=== PATIENT | male | born 1960 ===

== ENCOUNTER 2017-05-13 11:02 | Emergency (ER) | payer BC ==
--- NOTE | 2017-05-13 13:24 | UC ---
UC General HPI - HPI Summary HPI Summary: Has return of right great toe pain, pt here requesting refill of indocin--- discussion regarding the need for labs to assess renal function and high blood pressure--Patient reports he will be seeing a provider in [place] - History of Current Complaint Chief Complaint: UCMedRefill Stated Complaint: GOUT Time Seen by Provider: 05/13/17 13:17 Hx Obtained From: Patient Onset/Duration: Sudden Onset, Lasting Days, Still Present Timing: Constant Onset Severity: Moderate Current Severity: Moderate Pain Intensity: 8 Pain Location at: right great toe Aggravating: movement Associated Signs & Symptoms: Negative: Edema, Trauma - Allergy/Home Medications Allergies/Adverse Reactions: Allergies Allergy/AdvReac Type Severity Reaction Status Date / Time No Known Allergies Allergy Verified 05/13/17 12:45 PMH/Surg Hx/FS Hx/Imm Hx Previously Healthy: No - Gout Cardiovascular History: Hypertension - non adherent with Diovan as reccommended by PCP - Surgical History Surgical History: None - Family History Known Family History: Positive: None Family History: no reported cardiovascular issues in family lineage - Social History Occupation: Employed Full-time Lives: With Family Alcohol Use: Daily Substance Use Type: None Smoking Status (MU): Never Smoked Tobacco Review of Systems Constitutional: Negative Skin: Negative Eyes: Negative ENT: Negative Respiratory: Negative Cardiovascular: Negative Gastrointestinal: Negative Genitourinary: Negative Motor: Negative Neurovascular: Negative Musculoskeletal: Arthralgia - right great toe Neurological: Negative Psychological: Negative All Other Systems Reviewed And Are Negative: Yes Physical Exam Triage Information Reviewed: Yes Appearance: Well-Appearing, No Pain Distress, Well-Nourished Vital Signs: Initial Vital Signs Temp 98.6 F 05/13/17 12:41 Pulse 106 05/13/17 12:41 Resp 20 05/13/17 12:41 BP 179/102 05/13/17 12:41 Pulse Ox 98 05/13/17 12:41 Vital Signs Reviewed: Yes Eye Exam: Normal Eyes: Positive: Conjunctiva Clear ENT Exam: Normal ENT: Positive: Normal ENT inspection, Hearing grossly normal. Negative: Nasal congestion, Nasal drainage, Trismus, Muffled/hoarse voice Dental Exam: Normal Neck exam: Normal Neck: Positive: Supple, Nontender Respiratory Exam: Normal Respiratory: Positive: No respiratory distress, No accessory muscle use Cardiovascular Exam: Normal Cardiovascular: Positive: RRR, Pulses Normal, Brisk Capillary Refill Musculoskeletal Exam: Normal Musculoskeletal: Positive: Strength Intact, ROM Intact, No Edema Neurological Exam: Normal Neurological: Positive: Alert, Muscle Tone Normal Psychological Exam: Normal Skin Exam: Normal Course/Dx - Course Course Of Treatment: 5 day rx for indocin, encouraged diet changes, incouraged treatment and follow up for blood pressure - Differential Dx - Multi-Symptom Differential Diagnoses: Other - gout, injury, hypertension Provider Diagnoses: Gout right great toe, hypertension poor control not adherent with treatment Discharge - Discharge Plan Condition: Stable Disposition: HOME Prescriptions: Indomethacin CAP* [Indocin CAP*] 25 mg PO TID #21 cap Patient Education Materials: Low Purine Diet (ED), Gout (ED), DASH Eating Plan (ED), Hypertension (ED) Referrals: [facility] [place] [facility] [Outside] - 2 Weeks
== END 2017-05-13 13:37 | disposition home or self-care (01) ==
LOC: UCEAST 11:02
DX: M10.9 Gout, unspecified (principal); I10 Essential (primary) hypertension
CPT/HCPCS: 99202; G0463